=== PATIENT | female | born 1965 | race Caucasian/White ===

== ENCOUNTER 2017-10-13 10:07 | Emergency (ER) | payer OTHER ==
--- NOTE | 2017-10-13 11:23 | ULT ---
RIGHT LOWER EXTREMITY VENOUS DOPPLER ULTRASOUND: DATE: 10/13/17. COMPARISON: None. HISTORY: Right knee pain, calf pain, edema, assess for DVT. TECHNIQUE: Multiplanar, rocha scale sonographic imaging of the venous structures of the right lower extremity obt ained with color flow and spectral analysis. FINDINGS: Right common femoral vein, greater saphenous vein, profunda femoral vein, femoral vein, popliteal vei n, and posterior tibial vein demonstrate patency. There is normal blood flow, augmentation, and comp ression within the deep venous system of the right lower extremity. No evidence for DVT. IMPRESSION: No evidence for deep venous thrombosis of the right lower extremity. POS: MICHELLE
[2017-10-13] MEDS ORDERED: traMADol HCl 50 MG TAB ONE (13:16)
== END 2017-10-13 13:18 | disposition home or self-care (01) ==
LOC: ERS 10:07
DX: M79.604 Pain in right leg (principal)

== ENCOUNTER 2018-01-14 13:00 | Outpatient (CLI) | payer OTHER | END 2018-01-14 13:01 | disposition home or self-care (01) | LOC: BICMRI 13:00 | PROVIDERS: ATTEND Family Medicine | DX: M25.561 Pain in right knee (principal); M17.11 Unilateral primary osteoarthritis, right knee; M65.9 Synovitis and tenosynovitis, unspecified ==

== ENCOUNTER 2018-09-13 09:38 | Outpatient (CLI) | payer OTHER ==
--- NOTE | 2018-09-13 10:14 | ULT ---
RIGHT WRIST ULTRASOUND: History: Right hand/wrist mass which is new. Technique: Multiplanar grayscale and color doppler images were obtained in a targeted ultrasound of t he dorsal aspect of the right wrist. FINDINGS: Along the dorsal aspect of the right wrist, there is a mixed solid and cystic well circumscribed mass measuring 2.5 x 3.0 x 0.5 cm in size. This mass appears to be superficial to the extensor tendons an d is just beneath the subcutaneous fat and may be within the subcutaneous fat. There may be internal flow within this mass. IMPRESSION: Nonspecific mass along the dorsal aspect of the wrist. This is not completely cystic as would be seen with a ganglion cyst. This is nonspecific and an MRI with and without contrast would need to be perf ormed for better characterization. POS: LACIE
== END 2018-09-13 09:39 | disposition home or self-care (01) ==
LOC: BICULT 09:38
PROVIDERS: ATTEND Family Medicine
DX: R22.31 Localized swelling, mass and lump, right upper limb (principal)
CPT/HCPCS: 76999

== ENCOUNTER 2018-10-13 10:13 | Outpatient (CLI) | payer OTHER ==
--- NOTE | 2018-10-13 13:54 | MRI ---
MRI LEFT WRIST WITH AND WITHOUT CONTRAST: HISTORY: Pain. Abnormal ultrasound. COMPARISON: Ultrasound 09/13/2018. FINDINGS: BONES: No acute fracture. No malalignment. There is subcortical erosion of the lateral margin of the lunat e and scapholunate interval. TENDONS: There is a longitudinal split tear that extends to the extensor carpal ulnaris at the level of the ul noe groove with a large volume of fluid in the tendon sheath. This split tear occurs for 2 cam befor e normal insertion. There is also extensive tenosynovial fluid within the extensor digiti minimi as well as extensor digitorum tendon sheath. These flexor tendon sheaths are without significant fluid. MUSCLES: Muscle signal and bulk is normal. SOFT TISSUES: Moderate synovitis of the dorsal aspect of the wrist with synovial hypertrophy and enhancement. IMPRESSION: 1. Corresponding to the area of interest is marked tenosynovitis of the extensor tendons with extens mary fluid within the tendon sheath, synovial hypertrophy, and small volume debris. 2. Longitudinal split tear extensor carpal ulnaris at the level of the ulnar groove with moderate te nosynovial fluid as well as synovial hyperplasia. 3. Moderate synovitis of the dorsal aspect of the wrist. POS: [facility]
== END 2018-10-13 10:14 | disposition home or self-care (01) ==
LOC: BICMRI 10:13
PROVIDERS: ATTEND Family Medicine
DX: R22.31 Localized swelling, mass and lump, right upper limb (principal); M65.821 Other synovitis and tenosynovitis, right upper arm